=== PATIENT | male | born 1945 | race African-American/Black ===

== ENCOUNTER 2017-08-17 12:20 | Emergency (ER) | payer MEDICARE, MEDICAID ==
[~2017-08-17] VITALS: Ht 172.7 cm; Wt 72.6 kg
[2017-08-17] MEDS ORDERED: Clindamycin 150mg cap ORAL ONE (13:30)
[2017-08-17] MEDS ORDERED: Lidocaine 1% 10mg/ml/Epi 0.005mg/ml 30ml vial INJ ONE (13:30)
[2017-08-17] MEDS ORDERED: Norco 5mg/325mg tab ORAL ONE (13:30)
[2017-08-17] MEDS ORDERED: Bacitracin Oint UD TOPIC ONE (13:30)
[2017-08-17] MEDS ORDERED: CLEOCIN150 MG ORAL (14:33)
[2017-08-17 14:45] VITALS: BP 160/82
--- NOTE | 2017-08-17 17:13 | Emergency Room Report ---
History of Present Illness General Chief Complaint: Skin Rash/Abscess Source: Patient Present Illness HPI The patient is a 71-year-old male presenting for right shoulder pain. He admits to injecting drugs into this area. He noticed redness and swelling approximately one week prior which has been worsening. Pain is now an 8/10 dull ache and does not radiate. Worse with touch. He denies any numbness or tingling. He denies fever, chills, SOB, CP Allergies: Coded Allergies: PENICILLINS (Verified Allergy, Unknown, 08/17/17) Patient History Past Medical History: see triage record Pertinent Family History: none Reviewed Nursing Documentation: PMH: Agreed, PSxH: Agreed Nursing Documentation-PMH Past Medical History: No History, Except For Hx Hypertension: Yes Hx Diabetes: No Hx Cancer: Yes - Prostate Review of Systems All Other Systems: negative except mentioned in HPI Physical Exam Vital Signs Date Time Temp Pulse Resp B/P (MAP) Pulse Ox O2 Delivery O2 Flow Rate FiO2 08/17/17 13:12 98.2 73 16 142/63 99 Room Air Sp02 EP Interpretation: reviewed, normal General Appearance: no apparent distress, alert, GCS 15, non-toxic Head: normocephalic, atraumatic Eyes: bilateral eye normal inspection, bilateral eye PERRL Musculoskeletal: back normal, gait/station normal, normal range of motion, inflammation, swelling - R deltoid, tender - R lateral deltoid Neurologic: alert, oriented x3, responsive, motor strength/tone normal, sensory intact, speech normal Psychiatric: judgement/insight normal, memory normal, mood/affect normal, no suicidal/homicidal ideation Skin: rash - R lateral deltoid erythema and edema with fluctuance Lymphatic: no adenopathy Procedures Incision and Drainage Incision and Drainage : Consent: Verbal Site: R deltoid Blade Size: 11 I & D Procedure: betadine prep, sterile drapes applied Wound Location: upper extremity - R deltoid Wound's Depth, Shape: superficial, linear Wound Length (cm): 3 Wound Explored: contaminated Irrigated w/ Saline (ccs): 100 Anesthesia: 1% Lidocaine, Lidocaine w/ Epi Volume Anesthetic (ccs): 5 Splint Applied?: No Sling Applied?: No Patient Tolerated: Well Complications: None Medical Decision Making PA Attestation Dr. Barba is my supervising physician. Patient management was discussed with my supervising physician Diagnostic Impression: Primary Impression: Abscess ER Course The patient is a 71-year-old male presenting for right shoulder pain. Differential diagnoses considered but not limited to: abscess, cellulitis, insect bite PE: Afebrile. NAD R shoulder has erythema, edema, and fluctuance. TTP. FulL AROM intact. Betadine prep was used to clean the skin and surrounding area. One percent lidocaine without epinephrine was used to anesthetize the are of planned incision. A #11 blade was used to make an incision in the central area of fluctuance approximately 1/3 the size of the diameter of the abcess. Once the incision was made, purulent material was expressed with blood. Blunt dissection was then used to release loculations and expressed more purulent material. Once only blood appeard to be expressed from the incision, normal saline was used to irrigate the inside of the abscess. The wound was then cleaned and sterile dressing applied. He is given clindamycin and needs to FU with PMD. ER precautions given Last Vital Signs Date Time Temp Pulse Resp B/P (MAP) Pulse Ox O2 Delivery O2 Flow Rate FiO2 08/17/17 14:45 98.5 79 19 160/82 99 Room Air Status: improved Disposition: HOME, SELF-CARE Condition: Improved Scripts Clindamycin HCl (Clindamycin HCl) 300 Mg Capsule 300 MG ORAL Q6H, #28 CAP Prov: KADY ASCENCIO 08/17/17 Referrals: NOT CHOSEN IPA/,REFERRING (PCP) Patient Instructions: Abscess Additional Instructions: I discussed my findings with the patient. All questions and concerns have been answered. Treatment and medication compliance have been addressed. I advised the patient that they need to follow up with PMD in 3-5 days. Return to ED if symptoms worsen, new symptoms arise, or if needed for any reason. Patient verbalized understanding of discharge instructions. KADY ASCENCIO Aug 17, 2017 17:13
== END 2017-08-17 15:00 | disposition home or self-care (01) ==
LOC: EMR 14:50
DX: L02.413 Cutaneous abscess of right upper limb (principal)
CPT/HCPCS: 10060; 99284